=== PATIENT | female | born 1950 | race Caucasian/White ===

== ENCOUNTER 2017-10-18 08:58 | Outpatient (CLI) | payer MEDICARE, BC ==
[2017-10-18 10:23] LABS: BASOPHILS % (AUTO) 0.5 % (0-1); EOSINOPHILS # (AUTO) 0.2 X10'3 (0-0.9); EOSINOPHILS % (AUTO) 3.2 % (0-6); HEMATOCRIT 32.4 % (35.0-45.0); LYMPHOCYTES # (AUTO) 1.6 X10'3 (1.1-4.8); LYMPHOCYTES % (AUTO) 30.4 % (21-51); MEAN CORPUSCULAR HEMOGLOBIN 28.3 PG (27.0-31.0); MEAN CORPUSCULAR HGB CONC 34.1 % (33.0-36.5); MEAN CORPUSCULAR VOLUME 83.2 FL (78-98); MEAN PLATELET VOLUME 9.3 FL (7.4-10.4); MONOCYTES # (AUTO) 0.4 X10'3 (0-0.9); MONOCYTES % (AUTO) 6.6 % (2-12); NEUTROPHILS # (AUTO) 3.2 X10'3 (1.8-7.7); NEUTROPHILS % (AUTO) 59.3 % (42-75); PLATELET COUNT 212 X10'3 (140-440); RED CELL DISTRIBUTION WIDTH 14.8 % (11.5-14.5); WHITE BLOOD COUNT 5.4 X10'3 (4.5-11.0)
[2017-10-18 10:30] LABS: CLARITY,URINE SLIGHTLY CLOUDY (Clear); COLOR,URINE YELLOW (Yellow); GLUCOSE, URINE NEGATIVE (Neg); KETONES,URINE NEGATIVE (Neg); LEUKOCYTE ESTERASE ,URINE NEGATIVE (Neg); NITRITES, URINE NEGATIVE (Neg); OCCULT BLOOD,URINE SMALL (Neg); PH,URINE 7.5 (4.8-8.0); PROTEIN,URINE NEGATIVE (Neg); UROBILINOGEN,URINE 0.2 E.U/dL (0.2-1.0)
[2017-10-18 10:31] LABS: INR 0.9 INR; PROTHROMBIN TIME 9.8 SECONDS (9.0-12.0)
[2017-10-18 10:32] LABS: UA COLLECTION TYPE CLN CATCH MIDSTREAM
[2017-10-18 10:37] LABS: ALANINE AMINOTRANSFERASE 26 U/L (12-78); ALBUMIN 3.6 G/DL (3.4-5.0); ALKALINE PHOSPHATASE 95 IU/L (46-116); ANION GAP 8 (8-16); ASPARTATE AMINO TRANSFERASE 24 U/L (10-37); BILIRUBIN,TOTAL 0.4 MG/DL (0.1-1.0); BLOOD UREA NITROGEN 20 MG/DL (7-18); BUN/CREATININE RATIO 26.7 (6.6-38.0); CALCIUM 9.2 MG/DL (8.5-10.1); CHLORIDE 106 MMOL/L (99-107); CREATININE 0.75 MG/DL (0.40-0.90); GLUCOSE 95 MG/DL (70-104); POTASSIUM 4.1 MMOL/L (3.5-5.1); SODIUM 142 MMOL/L (135-145); TOTAL PROTEIN 7.3 G/DL (6.4-8.2); eGFR 77 ML/MIN
[2017-10-18 10:38] LABS: SQUAMOUS EPITHELIAL CELL,UR FEW /LPF (FEW)
[2017-10-18 10:39] LABS: BACTERIA,URINE FEW /HPF (Neg); RBC,URINE 0-2 /HPF (0-2); WBC,URINE 0-4 /HPF (0-4)
== END 2017-10-18 23:59 | disposition home or self-care (01) ==
LOC: LAB 08:58
PROVIDERS: ATTEND Specialist
DX: Z01.818 Encounter for other preprocedural examination (principal); Z51.81 Encounter for therapeutic drug level monitoring; N39.0 Urinary tract infection, site not specified
CPT/HCPCS: 36415; 80053; 81001; 85025; 85610; 87070

== ENCOUNTER 2017-10-25 10:30 | Inpatient (IN) | payer MEDICARE, BC ==
[~2017-10-25] VITALS: Ht 162.6 cm; Wt 73.7 kg
[2017-10-25 11:42] LABS: BASOPHILS % (AUTO) 0.5 % (0-1); EOSINOPHILS # (AUTO) 0.2 X10'3 (0-0.9); EOSINOPHILS % (AUTO) 3.1 % (0-6); HEMOGLOBIN 11.2 g/dl (12.0-16.0); LYMPHOCYTES # (AUTO) 2.1 X10'3 (1.1-4.8); LYMPHOCYTES % (AUTO) 35.1 % (21-51); MEAN CORPUSCULAR HEMOGLOBIN 28.1 PG (27.0-31.0); MEAN CORPUSCULAR HGB CONC 33.9 % (33.0-36.5); MEAN CORPUSCULAR VOLUME 82.9 FL (78-98); MEAN PLATELET VOLUME 8.9 FL (7.4-10.4); MONOCYTES # (AUTO) 0.4 X10'3 (0-0.9); MONOCYTES % (AUTO) 6.7 % (2-12); NEUTROPHILS # (AUTO) 3.2 X10'3 (1.8-7.7); NEUTROPHILS % (AUTO) 54.6 % (42-75); PLATELET COUNT 233 X10'3 (140-440); RED BLOOD COUNT 3.98 X10'6 (4.20-5.60); RED CELL DISTRIBUTION WIDTH 15.1 % (11.5-14.5); WHITE BLOOD COUNT 5.9 X10'3 (4.5-11.0)
[2017-10-26] MEDS ORDERED: CALC600T21 PO (10:44)
[2017-10-26] MEDS ORDERED: CHOL400C8 PO (10:44)
[2017-10-29] VITALS (33 sets, daily range): BP systolic 82–112; BP diastolic 46–69
[2017-10-29] MEDS ORDERED: ringers solution, lacted 1,000 ML IV SCH ×2 (05:00→13:24)
[2017-10-29] MEDS ORDERED: acetaminophen 325mg tablet PO ONE (05:30)
[2017-10-29] MEDS ORDERED: tranexamic acid inj. 1,000 MG in normal saline 100ml IV soln 90 ML IV ONE (05:30)
[2017-10-29] MEDS ORDERED: famotidine 20mg tablet PO ONE (05:30)
[2017-10-29] MEDS ORDERED: gabapentin 300mg capsule PO ONE (05:30)
[2017-10-29] MEDS ORDERED: ceFAZolin inj. 2,000 MG in normal saline 100ml IV soln 100 ML IV ONE (05:30)
[2017-10-29] MEDS ORDERED: oxyCODONE SR 10mg (sust. release) tab PO ONE (05:30)
[2017-10-29] MEDS ORDERED: bacitracin inj 150,000 UNIT in sodium chloride irrig. sol 3,000 ML IR ONE (10:00)
[2017-10-29] MEDS ORDERED: BUPIVAcaine/PF 7.5mg/ml (0.75%) 10ml vial ONE (10:24)
[2017-10-29] MEDS ORDERED: fentaNYL/PF 50MCG/1 ML 2ML syringe ONE (10:25)
[2017-10-29] MEDS ORDERED: MIDAZolam 1mg/ml 10ml vial ONE (10:25)
[2017-10-29] MEDS ORDERED: morphine /PF 1mg/ml 10ml inj. ONE (10:25)
[2017-10-29] MEDS ORDERED: ROPIVAcaine 0.5% (5mg/ml) 30ml vial IJ ONE (11:50)
[2017-10-29] MEDS ORDERED: naloxone 2mg/2ml inj 1.3 MG in normal saline 500ml IV soln 500 ML IV PRN (12:02)
[2017-10-29] MEDS ORDERED: ROPIVAcaine 0.5% (5mg/ml) 30ml vial ONE (12:04)
[2017-10-29] MEDS ORDERED: diphenhydrAMINE 50 mg/ml inj IV PRN (12:05)
[2017-10-29] MEDS ORDERED: ondansetron/PF 4mg/2ml inj IV PRN ×2 (12:05→13:25)
[2017-10-29] MEDS ORDERED: ceFAZolin 1000mg inj ONE (12:15)
[2017-10-29] MEDS ORDERED: oxyCODONE/APAP 10/325mg tablet PO PRN (13:00)
[2017-10-29] MEDS ORDERED: acetaminophen 325mg tablet PO PRN (13:00)
[2017-10-29] MEDS ORDERED: HYDROmorphone inj. 0.5 MG/0.5 ML DISP.SYRIN IV PRN (13:00)
[2017-10-29] MEDS ORDERED: magnesium hydroxide 30ml (MOM) UD suspension PO PRN (13:00)
[2017-10-29] MEDS ORDERED: diphenhydrAMINE 25mg capsule PO PRN ×2 (13:00)
[2017-10-29] MEDS ORDERED: bisacodyl 10mg suppository rectal RC PRN (13:00)
[2017-10-29] MEDS: gabapentin 300mg capsule PO SCH ×2 (13:00→19:55)
[2017-10-29] MEDS ORDERED: morphine 4 MG/ML inj SYRINge IV PRN ×2 (13:25)
[2017-10-29] MEDS ORDERED: proCHLORperazine 10 MG/2 ml inj IV PRN (13:25)
[2017-10-29] MEDS ORDERED: albumin (Human) 5% 250 ML IV solution IV STA ×2 (15:06)
[2017-10-29] MEDS ORDERED: albumin (Human) 5% 250ml 250 ML IV ONE (15:08)
[2017-10-29] MEDS: potassium cl 20mEq in 1/2 NS 1,000 ML IV SCH ×2 (16:53→20:26)
[2017-10-29] MEDS: ceFAZolin 1GM/D5W- ADD-VANTAGE 50 ML IV SCH (16:55)
[2017-10-29] MEDS: lactobacillus rhamnosus 10,000 MMU CELLS/CAPSULE PO SCH (19:55)
[2017-10-29] MEDS: ascorbic acid 500mg tablet PO SCH (19:55)
[2017-10-29] MEDS: sennosides 8.6mg tablet PO SCH (20:46)
[2017-10-29] MEDS: ondansetron/PF 4mg/2ml inj IV PRN (20:52)
[2017-10-30] VITALS (8 sets, daily range): BP systolic 78–114; BP diastolic 45–71
[2017-10-30] MEDS: ceFAZolin 1GM/D5W- ADD-VANTAGE 50 ML IV SCH
[2017-10-30] MEDS: potassium cl 20mEq in 1/2 NS 1,000 ML IV SCH ×3 (01:14→19:07)
[2017-10-30] MEDS: oxyCODONE/APAP 10/325mg tablet PO PRN ×3 (05:07→19:06)
[2017-10-30 06:04] LABS: BASOPHILS % (AUTO) 0.2 % (0-1); EOSINOPHILS # (AUTO) 0.1 X10'3 (0-0.9); EOSINOPHILS % (AUTO) 1.1 % (0-6); HEMATOCRIT 24.4 % (35.0-45.0); HEMOGLOBIN 8.3 g/dl (12.0-16.0); LYMPHOCYTES # (AUTO) 1.1 X10'3 (1.1-4.8); LYMPHOCYTES % (AUTO) 14.1 % (21-51); MEAN CORPUSCULAR HEMOGLOBIN 28.3 PG (27.0-31.0); MEAN CORPUSCULAR HGB CONC 33.9 % (33.0-36.5); MEAN CORPUSCULAR VOLUME 83.7 FL (78-98); MEAN PLATELET VOLUME 9.5 FL (7.4-10.4); MONOCYTES # (AUTO) 0.6 X10'3 (0-0.9); MONOCYTES % (AUTO) 7.4 % (2-12); NEUTROPHILS # (AUTO) 6.2 X10'3 (1.8-7.7); NEUTROPHILS % (AUTO) 77.2 % (42-75); PLATELET COUNT 164 X10'3 (140-440); RED BLOOD COUNT 2.92 X10'6 (4.20-5.60); RED CELL DISTRIBUTION WIDTH 14.7 % (11.5-14.5); WHITE BLOOD COUNT 8.1 X10'3 (4.5-11.0)
[2017-10-30 06:08] LABS: PROTHROMBIN TIME 10.7 SECONDS (9.0-12.0)
[2017-10-30 06:17] LABS: ANION GAP 7 (8-16); CHLORIDE 105 MMOL/L (99-107); POTASSIUM 4.3 MMOL/L (3.5-5.1); SODIUM 139 MMOL/L (135-145); TOTAL CARBON DIOXIDE 26.7 MMOL/L (24-32)
[2017-10-30] MEDS: gabapentin 300mg capsule PO SCH ×3 (08:23→20:23)
[2017-10-30] MEDS: multivitamins, therapeutics tablet PO SCH (08:23)
[2017-10-30] MEDS: ascorbic acid 500mg tablet PO SCH ×2 (08:23→20:23)
[2017-10-30] MEDS: lactobacillus rhamnosus 10,000 MMU CELLS/CAPSULE PO SCH ×2 (08:23→20:23)
[2017-10-30] MEDS ORDERED: warfarin 5mg tablet PO ONE (10:00)
[2017-10-30] MEDS: ondansetron/PF 4mg/2ml inj IV PRN (10:05)
[2017-10-30] MEDS: sennosides 8.6mg tablet PO SCH (20:23)
[2017-10-30] MEDS: celeCOXIB 100mg capsule PO SCH (20:23)
[2017-10-31] MEDS: oxyCODONE/APAP 10/325mg tablet PO PRN (04:56)
[2017-10-31 06:16] LABS: BASOPHILS % (AUTO) 0.2 % (0-1); EOSINOPHILS # (AUTO) 0.1 X10'3 (0-0.9); EOSINOPHILS % (AUTO) 1.4 % (0-6); HEMATOCRIT 23.9 % (35.0-45.0); HEMOGLOBIN 8.1 g/dl (12.0-16.0); LYMPHOCYTES # (AUTO) 1.5 X10'3 (1.1-4.8); LYMPHOCYTES % (AUTO) 23.8 % (21-51); MEAN CORPUSCULAR HEMOGLOBIN 28.6 PG (27.0-31.0); MEAN CORPUSCULAR HGB CONC 33.8 % (33.0-36.5); MEAN CORPUSCULAR VOLUME 84.5 FL (78-98); MEAN PLATELET VOLUME 9.3 FL (7.4-10.4); MONOCYTES # (AUTO) 0.5 X10'3 (0-0.9); NEUTROPHILS % (AUTO) 65.6 % (42-75); PLATELET COUNT 149 X10'3 (140-440); RED BLOOD COUNT 2.82 X10'6 (4.20-5.60); RED CELL DISTRIBUTION WIDTH 15.1 % (11.5-14.5); WHITE BLOOD COUNT 6.1 X10'3 (4.5-11.0)
[2017-10-31 06:17] LABS: INR 1.1 INR; PROTHROMBIN TIME 11.1 SECONDS (9.0-12.0)
[2017-10-31 06:51] VITALS: BP 111/74
[2017-10-31] MEDS ORDERED: ASPI-41 PO (07:52)
[2017-10-31] MEDS: celeCOXIB 100mg capsule PO SCH (07:53)
[2017-10-31] MEDS: gabapentin 300mg capsule PO SCH (07:53)
[2017-10-31] MEDS: lactobacillus rhamnosus 10,000 MMU CELLS/CAPSULE PO SCH (07:53)
[2017-10-31] MEDS: multivitamins, therapeutics tablet PO SCH (07:54)
[2017-10-31] MEDS: ascorbic acid 500mg tablet PO SCH (07:54)
[2017-10-31] MEDS ORDERED: warfarin 10mg tablet PO ONE (10:00)
[2017-10-31] MEDS ORDERED: acetaminophen 325mg tablet PO PRN (13:00)
== END 2017-10-31 09:10 | disposition home health service (06) | DRG 470 ==
LOC: EDSTATUS 10:30 → PAS IN 10-29 08:34 → EDSTATUS 10-29 10:45 → ORTHO 4S 10-29 16:50
PROVIDERS: ADMIT Specialist; ATTEND Specialist
PROC: 0SRD0J9 Replacement of Left Knee Joint with Synthetic Substitute, Cemented, Open Approach (ICD-10-PCS; principal; 2017-10-30)
PROC: 3E0T3BZ Introduction of Anesthetic Agent into Peripheral Nerves and Plexi, Percutaneous Approach (ICD-10-PCS; 2017-10-30)
DX: M17.12 Unilateral primary osteoarthritis, left knee (principal); D62 Acute posthemorrhagic anemia; M94.262 Chondromalacia, left knee; Z85.3 Personal history of malignant neoplasm of breast; Z90.710 Acquired absence of both cervix and uterus; Z88.2 Allergy status to sulfonamides; Z88.8 Allergy status to other drugs, medicaments and biological substances; Z79.899 Other long term (current) drug therapy
CPT/HCPCS: 36415; 73560; 80051; 85025; 85610; 97110; 97116; 97162; 97530; A6449; A6455; A7000; C1713; C1758; C1776; J0690; J0780; J2250; J2274; J2405; J2795; J3010; J3490; J7030; J7120; P9045